=== PATIENT | male | born 1980 | race Caucasian/White ===

== ENCOUNTER 2020-03-17 07:25 | Outpatient (CLI) | payer OTHER ==
[2020-03-17 13:18] LABS: ALBUMIN 4.5 g/dL (3.2-5.5); ALBUMIN/GLOBULIN RATIO 1.6 (1.0-2.2); ALKALINE PHOSPHATASE 81 IU/L (42-121); ALT ALANINE AMINOTRANSFERASE 39 IU/L (10-60); AST ASPARTATE AMINOTRANSFERASE 24 IU/L (10-42); BUN - BLOOD UREA NITROGEN 23 mg/dL (6-20); CALCIUM 9.9 mg/dL (8.5-10.3); CARBON DIOXIDE - CO2 26 mmol/L (21-32); CHLORIDE 101 mmol/L (101-111); CHOL/HDL RATIO 4.9 (<5.0); CHOLESTEROL 221 mg/dL; CREATININE 1.1 mg/dL (0.6-1.2); GFR - MDRD 74 (>89); GLUCOSE 91 mg/dL (70-100); HDL CHOLESTEROL 45 mg/dL; LDL CHOLESTEROL,CALCULATED 147 mg/dL; LDL/HDL RATIO 3.3 (<3.6); POTASSIUM 4.3 mmol/L (3.5-5.0); SODIUM 139 mmol/L (135-145); TOTAL PROTEIN 7.4 g/dL (6.7-8.2); TRIGLYCERIDES 146 mg/dL; VLDL CHOLESTEROL 29 mg/dL
[2020-03-17 13:39] LABS: THYROID STIMULATING HORMONE 2.67 uIU/mL (0.34-5.60)
[2020-03-17 13:59] LABS: BASOPHILS % (AUTO) 0.6 %; EOSINOPHILS # (AUTO) 0.2 10^3/uL (0.0-0.7); EOSINOPHILS % (AUTO) 2.3 %; HCT - HEMATOCRIT 48.1 % (42.0-52.0); HGB - HEMOGLOBIN 16.4 g/dL (14.0-18.0); LYMPHOCYTES # (AUTO) 1.9 10^3/uL (1.5-3.5); MEAN CORPUSCULAR HGB CONC 34.1 g/dL (32.0-36.0); MEAN CORPUSCULAR VOLUME 90.9 fL (80.0-94.0); MEAN PLATELET VOLUME 11.3 fL (7.4-11.4); MONOCYTES # (AUTO) 0.5 10^3/uL (0.0-1.0); MONOCYTES % (AUTO) 8.2 %; NEUTROPHILS # (AUTO) 3.8 10^3/uL (1.5-6.6); NEUTROPHILS % (AUTO) 58.6 %; PLT - PLATELET COUNT 238 10^3/uL (130-450); RED BLOOD COUNT 5.29 10^6/uL (4.70-6.10); RED CELL DISTRIBUTION WIDTH 11.9 % (12.0-15.0); WHITE BLOOD COUNT 6.4 x10^3/uL (4.8-10.8)
== END 2020-03-17 23:59 | disposition home or self-care (01) ==
LOC: LAB.WCP 07:25
PROVIDERS: ATTEND Family Medicine
DX: Z00.00 Encounter for general adult medical examination without abnormal findings (principal)
CPT/HCPCS: 36415; 80053; 80061; 83721; 84443; 85025

== ENCOUNTER 2020-04-15 07:52 | Outpatient (CLI) | payer OTHER ==
[2020-04-15 08:51] VITALS: BP 112/82
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
--- OUTSIDE RECORDS SUMMARY | 2020-04-20 01:27 | EXTERNAL MEDICAL SUMMARY RPT | Continuity of Care Document ---
:1980 Demographics Phone Unavailable Preferred Language Nepalese Marital Status Unknown Shinto Affiliation Unknown Race Unknown Ethnic Group Unknown Author Organization [facility] Address [address] [place] [address] Phone Care Team Providers Name Role Phone DO Unavailable Unavailable Lang Unavailable Unavailable MD Unavailable Unavailable Scheidt Unavailable Unavailable Problems date description facility 2013-11-09 09:25 NONSPECIF SKIN ERUPT NEC [facility] 2015-10-02 07:45 CERVICALGIA [facility] 2015-10-02 07:45 OTHER MUSCLE SPASM [facility] 2020-03-16 00:00:00 TSH WITH REFLEX TO FT4 All 2020-03-16 00:00:00 COMPREHENSIVE METABOLIC PANEL All 2020-03-16 00:00:00 Preventive procedure All 2020-03-16 00:00:00 Routine general medical All examination at a health care facility 2020-03-16 00:00:00 LIPIDS SCREEN All 2020-03-16 00:00:00 CBC W/Diff/Plt All 2020-03-16 00:00:00 Encounter for general adult All medical examination without abnormal findings 2020-03-17 00:00 ENCNTR FOR GENERAL ADULT [facility] MEDICAL EXAM W/O ABNORMAL FINDINGS 2020-03-17 07:25 ENCNTR FOR GENERAL ADULT [facility] MEDICAL EXAM W/O ABNORMAL FINDINGS 2020-03-30 00:00:00 Other alteration of All consciousness 2020-03-30 00:00:00 ECHO TRANSTHORACIC COMPLETE All 2020-03-30 00:00:00 Palpitations All 2020-03-30 00:00:00 Somnolence All 2020-03-30 00:00:00 Tobacco use and exposure All 2020-03-30 00:00:00 Exercise All 2020-03-30 00:00:00 Drowsy All 2020-03-30 00:00:00 Details of drug misuse behavior All 2020-03-30 00:00:00 Alcohol use All 2020-03-30 00:00:00 Tobacco smoking status NHIS All 2020-03-30 00:00:00 Former smoker All Allergies date description facility HYDROCODONE [facility] NO KNOWN ENVIRONMENTAL ALLERGIES [facility] No Known Drug Allergies [facility] SULFA (SULFONAMIDE ANTIBIOTICS) [facility] ATENOLOL [facility] LISINOPRIL [facility] METHYLPREDNISOLONE [facility] SULFADIAZINE [facility] TRAMADOL HCL [facility] TRAMADOL [facility] NO KNOWN ENVIRONMENTAL ALLERGIES [facility] UNCODED NONSCREENABLE ALLERGEN [facility] NO ALLERGY INFORMATION AVAILABLE [facility] NO KNOWN ALLERGIES [facility] MORPHINE [facility] DOXYCYCLINE [facility] GABAPENTIN [facility] LATEX [facility] ADHESIVE TAPE-SILICONES [facility] Procedures date description facility 2020-03-16 00:00:00 TSH WITH REFLEX TO FT4 All date description facility 2020-03-16 00:00:00 COMPREHENSIVE METABOLIC PANEL All date description facility 2020-03-16 00:00:00 LIPIDS SCREEN All date description facility 2020-03-16 00:00:00 CBC W/Diff/Plt All date description facility 2020-03-16 00:00:00 All Results Social History date description facility 2020-03-30 00:00:00 Former smoker All Social History date description facility 2020-03-30 00:00:00 Former smoker All date description facility [id number]
== END 2020-04-15 07:53 | disposition home or self-care (01) ==
LOC: SC 07:52
PROVIDERS: ATTEND Nurse Practitioner Family
DX: G47.10 Hypersomnia, unspecified (principal); R41.89 Other symptoms and signs involving cognitive functions and awareness; G47.8 Other sleep disorders; R06.81 Apnea, not elsewhere classified; R06.83 Snoring; E66.9 Obesity, unspecified; Z68.31 Body mass index [BMI] 31.0-31.9, adult
CPT/HCPCS: 99203; 99212

== ENCOUNTER 2020-04-22 08:56 | Outpatient (CLI) | payer OTHER | END 2020-04-22 08:57 | disposition home or self-care (01) | LOC: DI 08:56 | PROVIDERS: ATTEND Family Medicine | DX: R00.2 Palpitations (principal) | CPT/HCPCS: 93306 ==

== ENCOUNTER 2020-05-02 15:02 | Outpatient (CLI) | payer OTHER | END 2020-05-02 15:03 | disposition home or self-care (01) | LOC: COV 15:02 | PROVIDERS: ATTEND Family Medicine | DX: R05 Cough (principal); R07.0 Pain in throat; R09.81 Nasal congestion; Z20.822 Contact with and (suspected) exposure to COVID-19 ==

== ENCOUNTER 2020-06-21 20:30 | Outpatient (CLI) | payer OTHER | END 2020-06-21 20:31 | disposition home or self-care (01) | LOC: SC 20:30 | PROVIDERS: ATTEND Nurse Practitioner Family | DX: G47.31 Primary central sleep apnea (principal); G47.61 Periodic limb movement disorder | CPT/HCPCS: 95810 ==

== ENCOUNTER 2020-07-22 11:04 | Outpatient (CLI) | payer OTHER ==
--- NOTE | 2020-07-22 11:36 | SLEEP CARE CONSULTATION ---
Information from patient questionnaire entered by Roya Khan. I have reviewed and concur with the information entered by Roya Khan. This document represents the service I personally performed and the decisions made by , Georgia Dey ARNP. History of Present Illness Service Date and Time: 07/22/2020 1104 Initial [place] Sleepiness Scale score: 12 (in 2019) Current [place] Sleepiness Scale score: 11 Additional HPI information: GLADYS FINNEY returns for follow up and results of the recently performed polysomnography. He was found to have mild central sleep apnea with an AHI of 5.7 and brandon oxygen saturation of 91%. I explained the pathophysiology behind obstructive sleep apnea. We then spent quite a bit of time discussing different treatment options. For mild obstructive sleep apnea, surgery and oral appliance are alternatives to nasal CPAP therapy but in moderate or severe cases, nasal CPAP is the most effective and reliable treatment. Because apnea is primarily in supine position, then positional management therapy could be effective. Methods discussed such as positioning with pillows, using a T-shirt with tennis balls in the back, and shown commercial products that have a pillow format on back to prevent supine sleep. I reviewed the impact of weight changes on sleep apnea and strongly recommended losing weight. Sleep Study - Results Type of Sleep Study: Polysomnography Prior sleep studies: No Polysomnography/Home Sleep Study results: IMPRESSION: The quality of the study is good. The patient had reduced sleep efficiency due to sleep onset insomnia. The sleep architecture was relatively normal considering the first- night effect. Respiratory monitoring showed mild central sleep apnea (AHI = 5.7) associated with oxyhemoglobin desaturation but not hypoxia (brandon oxygen saturation of 91%). The central apneas were mostly transitional and occurred almost exclusively during supine sleep (supine AHI = 20.0; non-supine = 4.99). Snore was moderate in intensity. There was severe periodic leg movement of sleep not associated with sleep fragmentation. Cardiac rhythm was normal sinus rhythm without significant arrhythmia. No abnormal behavior (parasomnia) observed during the night. CONCLUSIONS and RECOMMENDATIONS: 1. The patient has mild central sleep apnea. ICD-10 G47.31. Positive airway pressure therapy is indicated. The patient should return for a manual CPAP/BiPAP titration study. Common causes of central sleep apnea included congestive heart failure, [employer] diseases, and opiate drugs. Central apneas can also be idiopathic or secondary to obstructive apneas. 2. Periodic leg movement (ICD G47.61), severe, treatment may be indicated. Clinical correlation advised. Allergies and Home Medications Home medication list reviewed: Yes (no new meds) Review of Systems Review of systems same as previous: Yes (no changes) Physical Exam Heart Rate: 82 O2 Saturation: 98 Height: 6 ft 3 in Weight: 257 lb Body Mass Index: 32.1 BMI Classification: Obese Impression and Plan 1. Central Sleep Apnea-Hypopnea Syndrome, mild, with lowest oxygen saturation of 91%. Obviously this is the cause of the patients symptoms of unrefreshed sleep, and excessive daytime sleepiness. Positive pressure therapy could benefit his overall health and reduce risks for cardiovascular or cerebrovascular events. Patient has history of heart palpitations. A manual titration study will be completed if unable to find optimal treatment pressure with office adjustments. Compliance guidelines also reviewed. Because the apnea is more severe supine, I instructed to avoid sleeping supine using pillow positioning until able to start CPAP use. 2. Periodic limb movement, severe, that did not fragment patients sleep. Periodic limb movement of sleep (PLMS) is characterized by episodes of repetitive limb movements that occur during sleep and usually involve the lower limbs. Patient was advised that no treatment is needed at this time. If symptoms increase, then further evaluation is indicated. * Titration study * Attempt to lose weight. * Avoid alcohol consumption near bedtime. * Avoid supine sleep until using machine * The patient is again cautioned about driving until sleepiness completely resolves. * Return after titration study. Counseling Topics: Weight loss health impact Visit Type: In Office Time Spent with Patient (minutes): 20 Provider Statement: I spent 100% of the Face to Face Visit with the patient with greater than 50% spent counseling the patient and coordination of care.
== END 2020-07-22 11:05 | disposition home or self-care (01) ==
LOC: SC 11:04
PROVIDERS: ATTEND Nurse Practitioner Family
DX: G47.31 Primary central sleep apnea (principal); G47.61 Periodic limb movement disorder; E66.9 Obesity, unspecified; Z68.32 Body mass index [BMI] 32.0-32.9, adult
CPT/HCPCS: 99212; 99213

== ENCOUNTER 2020-07-31 08:00 | Outpatient (CLI) | payer OTHER ==
--- NOTE | 2020-07-31 13:10 | XRAY Report ---
PROCEDURE: Femur 2V RT INDICATIONS: RIGHT THIGH PAIN TECHNIQUE: 2 views of the femur were acquired. COMPARISON: None. FINDINGS: Bones: No fractures or dislocations. No suspicious bony lesions. Soft tissues: No suspicious soft tissue calcifications or masses. IMPRESSION: Normal femur plain films. If it would be helpful for clinical management decision making, please consider a dedicated MRI (wit hout and with contrast) for further evaluation (assuming that there is no contraindication). Reviewed by: Cayetano Fair MD on 07/31/2020 12:08 PM AKMARYA Approved by: Cayetano Fair MD on 07/31/2020 12:08 PM AKMARYA Station ID: [id number]
== END 2020-07-31 23:59 | disposition home or self-care (01) ==
LOC: DI.N 08:00
PROVIDERS: ATTEND Nurse Practitioner
DX: M79.651 Pain in right thigh (principal)

== ENCOUNTER 2021-02-28 08:12 | Outpatient (CLI) | payer OTHER ==
[2021-02-28 08:59] VITALS: BP 126/82
--- NOTE | 2021-02-28 08:59 | SLEEP CARE CONSULTATION ---
Information from patient questionnaire entered by Ivan Marrero MA. I have reviewed and concur with the information entered by Ivan Marrero MA. This document represents the service I personally performed and the decisions made by Yissel trinh Caren J, ARNP. History of Present Illness Service Date and Time: 02/28/2021 0812 Previous diagnosis: Mild, Central Sleep Apnea-Hypopnea Syndrome AHI: 5.7 Reason for follow up: other (7 MONTH F/U RE-DO POLY. ) Equipment type: CPAP Prior sleep studies: No Type of Sleep Study: Polysomnography HPI additional information: GLADYS FINNEY was previously diagnosed to have mild, AHI 5.7, central sleep apnea-hypopnea syndrome and returned today for 7 month follow-up. He needs to repeat PSG to requalify and start therapy. Sleep Study - Results Type of Sleep Study: Polysomnography Prior sleep studies: No Year and Where: 06/2020 [facility] Subjective Initial [place] Sleepiness Scale score: 12 (in 2019) Current [place] Sleepiness Scale score: 12 (in 2020) Allergies and Home Medications Home medication list reviewed: Yes (no changes) Review of Systems Review of systems same as previous: Yes (no changes) Physical Exam Vital signs obtained and entered by: MILES SOUSA Blood Pressure: 126/82 (right ) Cuff size: wrist Heart Rate: 70 O2 Saturation: 99 (with mask) Height: 6 ft 3 in Weight: 259 lb (with boots) Body Mass Index: 32.3 BMI Classification: Obese Impression and Plan 1. Suspected Obstructive Sleep Apnea-Hypopnea Syndrome, as previously diagnosed and as suggested by a history of loud and irregular snoring, observed cessation of breath while asleep, gasping or choking in sleep, unrefreshed sleep, cognitive impairment, and excessive daytime sleepiness. Patient completed study showing AHI 5.7 central sleep apnea but was unable to get titration study and now needs to re-qualify. Patient also has some concerns about not being able to sleep well that night because he had a terrible night during the first study and requests a sleep aide. I will write for a 5 mg dose of zolpidem for the night of the in lab study. I recommend proceeding to polysomnography to confirm the diagnosis and to assess severity. I obtained agreement to proceed. The pathophysiology of obstructive sleep apnea-hypopnea syndrome was discussed with the patient and health risks of cardiovascular and cerebrovascular disease if not treated. Risks of drowsy driving discussed in detail and patient advised to avoid long distance driving and to cotton puller at the first sign of drowsiness. Patient agreed to plan. Patient feels he has gained weight and there is a 2 p ound increase from his last visit. Patient was encouraged to lose weight for their overall health and to reduce apneas. * Schedule polysomnography. * 5 mg Zolpidem for night of in lab sleep study * Avoid long distance driving or driving when feeling sleepy. * Avoid alcohol, sedative and muscle relaxant around bedtime. * Attempt to lose weight. * Review instructions provided by trained office staff on how to prepare for the sleep study. * Return for follow-up after sleep study completed. Counseling Topics: Weight loss health impact Visit Type: In Office Time Spent with Patient (minutes): 18 Provider Statement: I spent 100% of the Face to Face Visit with the patient with greater than 50% spent counseling the patient and coordination of care.
== END 2021-02-28 08:13 | disposition home or self-care (01) ==
LOC: SC 08:12
PROVIDERS: ATTEND Nurse Practitioner Family
DX: G47.31 Primary central sleep apnea (principal); E66.9 Obesity, unspecified; Z68.32 Body mass index [BMI] 32.0-32.9, adult
CPT/HCPCS: 99212

== ENCOUNTER 2021-03-07 20:21 | Outpatient (CLI) | payer OTHER | END 2021-03-07 20:22 | disposition home or self-care (01) | LOC: SC 20:21 | PROVIDERS: ATTEND Nurse Practitioner Family | DX: G47.33 Obstructive sleep apnea (adult) (pediatric) (principal); E66.9 Obesity, unspecified; Z68.32 Body mass index [BMI] 32.0-32.9, adult | CPT/HCPCS: 95810 ==

== ENCOUNTER 2021-03-28 09:54 | Outpatient (CLI) | payer OTHER ==
[2021-03-28 10:36] VITALS: BP 108/71
--- NOTE | 2021-03-28 10:36 | SLEEP CARE CONSULTATION ---
Information from patient questionnaire entered by Ivan Marrero MA. I have reviewed and concur with the information entered by Ivan Marrero MA. This document represents the service I personally performed and the decisions made by , Georgia Dey ARNP. History of Present Illness Service Date and Time: 03/28/2021 0954 Initial [place] Sleepiness Scale score: 12 (in 2019) Current [place] Sleepiness Scale score: 15 (2020) Additional HPI information: GLADYS FINNEY returns for follow up and results of the recently performed polysomnography. The patient was informed of the following findings: No significant sleep disordered breathing with an AHI of 2.0 and brandon oxygen saturation of 91%. His supine AHI was elevated at 9.9 and he did have severe periodic leg movements of sleep. His snoring was moderate to loud in intensity. I explained the pathophysiology behind obstructive sleep apnea. Patient does not have sleep apnea and was advised how weight gain could increase the risk of developing sleep apnea in the future. I strongly encouraged the patient to lose weight. Patient does not have significant sleep disordered breathing but has elevated AHI in supine position so advised positional therapy. Methods to achieve positional management therapy were discussed; such as, positioning with pillows, wearing a T-shirt with tennis balls sewn into the back, Rematee shirt, Zzomba belt and Slumberbump belt. Patient has moderate to loud snoring. Snoring can be reduced by weight loss. Weight loss is best achieved with diet consult. Patient instructed to contact PCP for referral. Snoring can also be treated with an oral appliance from a dentist. Advised to check insurance coverage. In addition, an ENT evaluation can be do to see if other treatment is indicated. Patient counseled not drink alcohol less than 4 hours before bedtime as it can increase snoring and apnea. Patient was cautioned about risks of drowsy driving until sleepiness symptoms resolve. Sleep Study - Results Type of Sleep Study: Polysomnography Prior sleep studies: No Year and Where: 06/2020 [facility] Polysomnography/Home Sleep Study results: IMPRESSION: The quality of the study is good. The patient had slightly reduced sleep efficiency. Despite moderate sleep fragmentation, the sleep architecture was normal. Respiratory monitoring showed no significant sleep disordered breathing (AHI = 2.0) or hypoxia (brandon oxygen saturation of 91%). The rare respiratory events occurred almost exclusively during very limited supine sleep (supine AHI = 9.9; non-supine = 1.71). Snore was moderate to loud in intensity. There was severe periodic leg movement of sleep 24.5. Cardiac rhythm was normal sinus rhythm without significant arrhythmia. No abnormal behavior (parasomnia) observed during the night. CONCLUSIONS and RECOMMENDATIONS: 1. The patient has no significant obstructive sleep apnea-hypopnea. However, because the supine AHI was elevated at 9.9, the patient should avoid sleeping supine. 2. Periodic leg movement (ICD G47.61), severe, treatment may be indicated. Clinical correlation advised. Allergies and Home Medications Home medication list reviewed: Yes (no changes) Review of Systems Review of systems same as previous: Yes (no changes) Physical Exam Vital signs obtained and entered by: MILES SOUSA Blood Pressure: 108/71 (right) Cuff size: wrist Heart Rate: 72 O2 Saturation: 99 Height: 6 ft 3 in Weight: 259 lb (with boots and clothes) Body Mass Index: 32.3 BMI Classification: Obese Impression and Plan 1. Snoring but no significant sleep disordered breathing. I explained the patient. His pain is stable he had more obstructions when sleeping on his back that may have caused the central apneas that he had. Patient advised that often weight loss will reduce snoring as well as apnea risk. An oral appliance can also be used for snoring. This would require a dental consultation. Patient cau tioned not to use other online appliances as can cause bite issues. A list of accredited dentists in [facility] who make oral appliances is available in office. Patient is advised to check if insurance will cover. An ENT consult can also be helpful to determine if any other treatment is an option. 2. Periodic limb movement, severe, that did not fragment patients sleep. Periodic limb movement of sleep (PLMS) is characterized by episodes of repetitive limb movements that occur during sleep and usually involve the lower limbs. The etiology is unknown but can be associated with restless leg syndrome (RLS), neuropathy, spinal cord diseases, kidney disease, rheumatological disorders, narcolepsy, obstructive sleep apnea, and REM sleep behavior disorder. Other factors that can increase PLMS and/or RLS are heredity and iron deficiency as reflected by a low serum ferritin level below 50 to 75mcg / L. Several medications can precipitate or aggravate PLMS such as selective serotonin re- uptake inhibitor antidepressants, tricyclic antidepressants, lithium, and dopamine receptor antagonists with the exception of bupropion. Caffeine can also aggravate PLMS and should be avoided. Sleep hygiene methods can also improve sleep as well as lifestyle changes such as regular exercise. Patient was advised that no treatment is needed at this time. If symptoms increase, then further evaluation is indicated. * Attempt to lose weight * Avoid alcohol consumption near bedtime * The patient is cautioned about driving until sleepiness is completely resolved. * Return as needed for follow up. Counseling Topics: Sleeping position, Weight loss health impact Visit Type: In Office Time Spent with Patient (minutes): 11 Provider Statement: I spent 100% of the Face to Face Visit with the patient with greater than 50% spent counseling the patient and coordination of care.
== END 2021-03-28 09:55 | disposition home or self-care (01) ==
LOC: SC 09:54
PROVIDERS: ATTEND Nurse Practitioner Family
DX: R06.83 Snoring (principal); G47.61 Periodic limb movement disorder; E66.9 Obesity, unspecified; Z68.32 Body mass index [BMI] 32.0-32.9, adult
CPT/HCPCS: 99212

== ENCOUNTER 2021-04-24 08:00 | Outpatient (CLI) | payer OTHER | END 2021-04-24 23:59 | LOC: LAB.S 08:00 | PROVIDERS: ATTEND Registered Nurse | DX: U07.1 COVID-19 (principal) | CPT/HCPCS: 87070; 87275; 87276 ==

== ENCOUNTER 2022-08-03 08:15 | Outpatient (CLI) | payer OTHER ==
[2022-08-03 14:34] LABS: BASOPHILS % (AUTO) 0.6 %; EOSINOPHILS # (AUTO) 0.1 10^3/uL (0.0-0.7); EOSINOPHILS % (AUTO) 1.8 %; HCT - HEMATOCRIT 47.1 % (42.0-52.0); HGB - HEMOGLOBIN 15.9 g/dL (14.0-18.0); LYMPHOCYTES # (AUTO) 2.3 10^3/uL (1.5-3.5); LYMPHOCYTES % (AUTO) 32.2 %; MEAN CORPUSCULAR HEMOGLOBIN 30.9 pg (27.0-31.0); MEAN CORPUSCULAR HGB CONC 33.8 g/dL (32.0-36.0); MEAN CORPUSCULAR VOLUME 91.5 fL (80.0-94.0); MEAN PLATELET VOLUME 11.8 fL (7.4-11.4); MONOCYTES # (AUTO) 0.5 10^3/uL (0.0-1.0); MONOCYTES % (AUTO) 7.6 %; NEUTROPHILS # (AUTO) 4.1 10^3/uL (1.5-6.6); NEUTROPHILS % (AUTO) 57.7 %; PLT - PLATELET COUNT 235 10^3/uL (130-450); RED BLOOD COUNT 5.15 10^6/uL (4.70-6.10); RED CELL DISTRIBUTION WIDTH 12.2 % (12.0-15.0); WHITE BLOOD COUNT 7.1 x10^3/uL (4.8-10.8)
[2022-08-03 14:53] LABS: ALBUMIN 4.5 g/dL (3.2-5.5); ALBUMIN/GLOBULIN RATIO 1.5 (1.0-2.2); BILIRUBIN,TOTAL 0.7 mg/dL (0.2-1.0); CALCIUM 9.4 mg/dL (8.5-10.3); CREATININE 1.1 mg/dL (0.6-1.2); POTASSIUM 5.1 mmol/L (3.5-5.0); TOTAL PROTEIN 7.6 g/dL (6.7-8.2)
[2022-08-03 15:05] LABS: THYROID STIMULATING HORMONE 1.94 uIU/mL (0.34-5.60)
== END 2022-08-03 08:16 | disposition home or self-care (01) ==
LOC: LAB.S 08:15
PROVIDERS: ATTEND Nurse Practitioner
DX: R51.9 Headache, unspecified (principal); R42 Dizziness and giddiness
CPT/HCPCS: 36415; 80053; 82607; 84443; 85025

== ENCOUNTER 2023-06-26 08:00 | Outpatient (CLI) | payer OTHER ==
--- NOTE | 2023-06-26 14:22 | XRAY Report ---
PROCEDURE: Finger(s) RT INDICATIONS: CONTUSION OF RIGHT RING FINGER TECHNIQUE: AP hand, 2 views of the 4yh finger(s) acquired. COMPARISON: X-ray hand 04/03/2016 FINDINGS: Bones: No fractures or dislocations. No suspicious bony lesions. Soft tissues: No suspicious soft tissue calcifications or masses. IMPRESSION: No visualized acute fracture or dislocation. However, occult injury cannot be excluded. Recommend esperanza rt interval imaging follow-up in 7-10 days as clinically indicated for additional evaluation. Reviewed by: Urvashi Mccoy MD on 06/26/2023 2:21 PM PDT Approved by: Urvashi Mccoy MD on 06/26/2023 2:21 PM PDT Station ID: [id number]
== END 2023-06-26 08:15 | disposition home or self-care (01) ==
LOC: DI.N 08:00
PROVIDERS: ATTEND Physician Assistant Medical
DX: S60.041A Contusion of right ring finger without damage to nail, initial encounter (principal)

== ENCOUNTER 2023-07-06 12:25 | Outpatient (CLI) | payer OTHER ==
--- NOTE | 2023-07-06 15:18 | XRAY Report ---
PROCEDURE: Finger(s) RT INDICATIONS: MALLET FINGER,RIGHT RING FINGER TECHNIQUE: AP hand, 2 views of the fourth finger(s) acquired. COMPARISON: 06/26/2023. FINDINGS: Bones: Acute fracture involving dorsal aspect of fourth distal phalangeal base is seen with fracture line extending to fourth distal interphalangeal joint space. No other fracture or dislocation. Sligh t dorsal displacement of fractured fragment is seen. No suspicious bony lesions. Soft tissues: No suspicious soft tissue calcifications or masses. IMPRESSION: Slightly displaced intra-articular fracture involving fourth distal phalangeal base is again seen unc hanged from prior study. No new fracture or dislocation. Reviewed by: Wojciech Dow MD on 07/06/2023 3:17 PM PDT Approved by: Wojciech Dow MD on 07/06/2023 3:17 PM PDT Station ID: [id number]
== END 2023-07-06 12:26 | disposition home or self-care (01) ==
LOC: DI.S 12:25
PROVIDERS: ATTEND Physician Assistant Surgical
DX: M20.011 Mallet finger of right finger(s) (principal); S62.634D Displaced fracture of distal phalanx of right ring finger, subsequent encounter for fracture with routine healing